=== PATIENT | female | born 1975 | race Caucasian/White ===

== ENCOUNTER 2016-11-23 17:51 | Emergency (ER) | payer BC ==
--- NOTE | 2016-11-23 18:13 | ERNOTE ---
ER Female HPI Date of Service: 11/23/16 Stated Complaint: UTI? Presenting Symptoms: dysuria Time Seen by Provider: 11/23/16 18:06 Source: patient Exam Limitations: no limitations Immunizations: IMMUNIZATION HX Immunizations Up to Date Yes History of Influenza Vaccine No Hx Pneumococcal Vaccination No Allergies/Adverse Reactions: Allergies No Known Allergies Allergy (Verified 01/21/15 20:22) Home Medications: HOME MEDICATIONS Citalopram Hydrobromide [Celexa] 40 mg PO DAILY 03/28/14 [Last Taken Unknown] Insulin Glargine,Hum.rec.anlog [Lantus] 40 unit SQ BID 01/21/15 [Last Taken Unknown] Insulin Regular, Human [Humulin R] See Protocol SC TID PRN 01/21/15 [Last Taken Unknown] Nitrofurantoin/Nitrofuran Mac [Macrobid] 100 mg PO Q12H #20 cap 11/23/16 [Last Taken Unknown] busPIRone HCL [Buspar] 5 mg PO DAILY 11/23/16 [Last Taken Unknown] - History of Present Illness Narrative: For the last 3 days has had dysuria. Developed progressive pelvic pressure and sensation of need to urinate. Had some nausea this AM. No fever, chills. Has not had UTI for years. Review of Systems - Review of Systems EYE: Present: no symptoms reported Respiratory: Present: no symptoms reported Cardiology: Present: no symptoms reported Endocrine: Present: no symptoms reported - Patient's Past Medical History Patient History - Medical: Diabetes Type 2, Depression Patient History - Cardiac/Respiratory: Asthma, Bronchitis Patient History - Cancer: No Hx of Cancer Patient History - Surgical Procedures: Cholecystectomy, , T & A, Other Patient History - Other: None LMP (females 10-50): last week - Social History Living Situations: spouse Abuse History: No History of abuse Psych History: Hx of Depression Smoking Status: Current every day smoker Have you smoked in the past 12 months: Yes Do you dip or chew tobacco: No Alcohol Use: rarely Drug Use: none - Immunizations Immunizations Up to Date: Yes Hx Pneumococcal Vaccination: No History of Influenza Vaccine: No Physical Exam - Physical Exam General Appearance: Present: wd/wn, alert, no apparent distress, obese Eye Exam: Normal inspection: bilateral Ears, Nose, Throat: Present: normal ENT inspection Respiratory: Present: no respiratory distress Cardiovascular/Chest: Present: regular rate, rhythm Gastrointestinal/Abdominal: Present: nontender, soft ED Progress - Results and Orders Patient's Lab Results:: I have reviewed the patient's lab results. - Vital Signs Patient's Vital Signs:: I have reviewed the patient's vital signs. Vital Signs: Vital Signs 11/23/16 17:54 Temperature 36.8 C Pulse Rate 90 Respiratory 16 Rate Blood Pressure 125/71 O2 Sat by Pulse 96 Oximetry - Progress/Reassessment Chief Complaint: Genitourinary Problem Plan - Plan Plan: antibiotic Departure Clinical Impression: UTI (urinary tract infection) - Departure Disposition: Home self-care Condition: Good Instructions: Urinary Tract Infection, Adult, [id number] Additional Instructions: take macrobid as directed Follow up with PCP Referrals: Alayna Vasquez APN [Primary Care Provider] - Prescriptions: Nitrofurantoin/Nitrofuran Mac [Macrobid] 100 mg PO Q12H #20 cap
[2016-11-23 18:20] LABS: Urine Appearance Cloudy; Urine Bilirubin Negative (NEGATIVE); Urine Color Yellow
[2016-11-23 18:21] LABS: Urine Blood 250 /ul (NEGATIVE); Urine Ketone Negative (NEGATIVE); Urine Nitrite Negative (NEGATIVE); Urine Protein Negative (NEGATIVE); Urine Urobilinogen Normal (NORMAL); Urine WBC 25-50 /hpf (0-5); Urine pH 6.5 pH (5.0-7.0)
[2016-11-23 18:22] LABS: Urine Bacteria 1+
[2016-11-23] MEDS ORDERED: NITROFURANTOIN/NITROFURAN MAC 100 MG CAPSULE PO ONE (18:53)
[2016-11-23] MEDS ORDERED: NITROFURANTOIN/NITROFURAN MAC 100 MG CAPSULE ONE (18:54)
[2016-11-23 19:52] VITALS: BP 131/70
== END 2016-11-23 18:59 | disposition home or self-care (01) ==
LOC: ER 17:51
DX: N39.0 Urinary tract infection, site not specified (principal); E11.9 Type 2 diabetes mellitus without complications; Z79.4 Long term (current) use of insulin; F32.9 Major depressive disorder, single episode, unspecified; F17.200 Nicotine dependence, unspecified, uncomplicated